=== PATIENT | male | born 1960 | race Asian ===

== ENCOUNTER 2020-04-24 23:21 | Emergency (ER) | payer OTHER ==
[~2020-04-24] VITALS: Ht 172.7 cm; Wt 90.7 kg
[2020-04-24 23:40] VITALS: BP 167/96
--- NOTE | 2020-04-24 23:43 | NUR ---
TO LOBBY A/W BED AMBULATORY
--- NOTE | 2020-04-25 00:29 | NUR ---
CHITRA AT CHAIRSIDE FOR MEDICAL EVALUATION.
[2020-04-25 00:34] LABS: BASOPHILS % (AUTO) 0.8 % (0.0-2.0); EOSINOPHILS # (AUTO) 0.2 K/uL (0-0.4); EOSINOPHILS % (AUTO) 4.1 % (0.0-4.0); HEMATOCRIT 50.1 % (36-52); HEMOGLOBIN 16.6 g/dL (12.0-18.0); LYMPHOCYTES # (AUTO) 1.1 K/uL (2.0-11.5); LYMPHOCYTES % (AUTO) 21.7 % (20.5-51.1); MEAN CORPUSCULAR HEMOGLOBIN 30 pg (27-31); MEAN CORPUSCULAR HGB CONC 33 g/dL (33-37); MEAN CORPUSCULAR VOLUME 89.4 fL (80-94); MONOCYTES # (AUTO) 0.5 K/uL (0.8-1.0); MONOCYTES % (AUTO) 9.4 % (1.7-9.3); NEUTROPHILS # (AUTO) 3.4 K/uL (1.8-7.7); PLATELET COUNT (AUTO) 155 K/uL (140-450); RED BLOOD CELL COUNT(AUTO) 5.61 MIL/uL (4.20-6.10); RED CELL DISTRIBUTION WIDTH 13.5 % (11.6-13.7); WHITE BLOOD COUNT (AUTO) 5.3 K/uL (4.8-10.8)
--- NOTE | 2020-04-25 00:48 | NUR ---
EKG PERFORMED IN PHLEBOTOMY CHAIR. EKG READS SINUS RHYTHM @ 71
[2020-04-25 00:53] LABS: ALBUMIN 4.1 g/dL (3.4-5.0); ANION GAP 11.3 (8-16); CARBON DIOXIDE 32.1 mmol/L (21-32); POTASSIUM 4.4 mmol/L (3.5-5.1); TOTAL BILIRUBIN 0.5 mg/dL (0.0-1.0)
--- NOTE | 2020-04-25 01:42 | NUR ---
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
--- NOTE | 2020-04-25 01:46 | NUR ---
EKG PERFORMED IN PHLEBOTOMY CHAIR WITH SCREEN. EKG READS SINUS RHYTHM @ 69
--- NOTE | 2020-04-25 02:05 | NUR ---
PT TAKEN TO RAD
[2020-04-25 02:47] VITALS: BP 164/92
--- NOTE | 2020-04-25 02:47 | NUR ---
Patient discharged with v/s stable. Written and verbal after care instructions given and explained. Patient verbalized understanding. Ambulatory with steady gait. All questions addressed prior to discharge. Advised to follow up with PMD.
== END 2020-04-25 02:47 | disposition home or self-care (01) ==
LOC: MED 23:21
DX: R07.89 Other chest pain (principal); I10 Essential (primary) hypertension
CPT/HCPCS: 36415; 71045; 80053; 84484; 85025; 93005; 99285